=== PATIENT | female | born 1995 | race Caucasian/White ===

== ENCOUNTER 2020-07-15 15:01 | Emergency (ER) | payer BC, OTHER ==
[~2020-07-15] VITALS: Ht 170.2 cm; Wt 89.4 kg
[2020-07-15] MEDS ORDERED: FLAGYL500 MG PO (17:00)
[2020-07-15] MEDS ORDERED: DOXYCYCLINE HY100 MG PO (17:00)
== END 2020-07-15 17:45 | disposition home or self-care (01) ==
LOC: ED 15:01
DX: L73.9 Follicular disorder, unspecified (principal); Z88.5 Allergy status to narcotic agent
CPT/HCPCS: 81001; 87210; 96372; 99283; J0696